=== PATIENT | female | born 1995 | race American Indian/Alaskan Native ===

== ENCOUNTER 2021-07-12 20:32 | Outpatient (CLI) | payer OTHER ==
[2021-07-12 23:10] VITALS: BP 115/66
== END 2021-07-12 23:45 | disposition home or self-care (01) ==
LOC: TRG 20:32 → APU 20:33 → TRG 23:45
PROVIDERS: ATTEND Obstetrics & Gynecology
DX: O47.1 False labor at or after 37 completed weeks of gestation (principal); Z3A.38 38 weeks gestation of pregnancy
CPT/HCPCS: 59025

== ENCOUNTER 2021-07-13 15:49 | Inpatient (IN) | payer OTHER ==
[2021-07-13] MEDS ORDERED: LACTATED RINGERS 2,000 ML ONE (15:58)
[2021-07-13] MEDS ORDERED: OXYTOCIN DRIP 60,000 MILLIUNITS/1,000 ML BAG IV ONE (16:22)
[2021-07-13] MEDS ORDERED: MAGNESIUM HYDROXIDE (MOM) ORAL LIQD UDC PO PRN (17:32)
[2021-07-13] MEDS ORDERED: KETOROLAC 30 MG/1 ML INJ IV PRN (17:32)
[2021-07-13] MEDS ORDERED: HYDROcodone/ACETAMINOPHEN 5-325 MG TAB PO PRN (17:32)
[2021-07-13] MEDS ORDERED: diphenhydrAMINE 25 MG CAP PO PRN (17:32)
[2021-07-13] MEDS ORDERED: PROMETHAZINE 25 MG TAB PO PRN (17:32)
[2021-07-13] MEDS ORDERED: PROMETHAZINE 25 MG RECT SUPP PR PRN (17:32)
[2021-07-13] MEDS ORDERED: ONDANSETRON 4 MG/2 ML INJ IV PRN (17:32)
[2021-07-13] MEDS ORDERED: ACETAMINOPHEN 325 MG TAB PO PRN (17:32)
[2021-07-13] MEDS ORDERED: LANOLIN/ZINC/DIMETHICONE (LANSINOH) 7 GM TP PRN (17:32)
[2021-07-13] MEDS ORDERED: WITCH HAZEL/ GLYCERIN PAD TP PRN (17:32)
--- NOTE | 2021-07-13 17:39 | History and Physical Report ---
History of Present Illness Date of examination: 07/13/21 Date of admission: 07/13/21 15:50 Chief complaint: Active labor. 9cm dilated. History of present illness: . LEONOR 07/23/2021. Past History Past Medical History: no pertinent history - Obstetrical History Expected Date of Delivery: 07/23/21 Actual Gestation: 38 Week(s) 4 Day(s) : 3 Para: 3 Medications and Allergies Allergies Allergy/AdvReac Type Severity Reaction Status Date / Time No Known Allergies Allergy Unverified 07/12/21 23:10 Active Meds: Active Medications Acetaminophen (Acetaminophen 325 Mg Tab) 650 mg PO Q4H PRN PRN Reason: Pain MILD(1-3)/Fever >100.5/MARIO Hydrocodone Bitart/Acetaminophen (Hydrocodone/Acetaminophen 5-325 Mg Tab) 2 each PO Q6H PRN PRN Reason: Pain, Moderate (4-6) Bisacodyl (Bisacodyl 10 Mg Rect Supp) 10 mg MS BID PRN PRN Reason: Constipation Diphenhydramine HCl (Diphenhydramine 25 Mg Cap) 25 mg PO Q6H PRN PRN Reason: Itching Ibuprofen (Ibuprofen 800 Mg Tab) 800 mg PO Q6H SUSI Ketorolac Tromethamine (Ketorolac 30 Mg/1 Ml Inj) 30 mg IV Q6H PRN PRN Reason: Pain, Moderate (4-6) Stop: 07/18/21 17:31 Magnesium Hydroxide (Magnesium Hydroxide (Mom) Oral Liqd Udc) 30 ml PO HS PRN PRN Reason: Constipation Multi-Ingredient Ointment (Lanolin/Zinc/Dimethicone (Lansinoh) 7 Gm) 1 applic TP PRN PRN PRN Reason: Sore Nipples Multivitamins/Iron/Calcium ( Xfb23-Pf Fumarate-Folic Acid Vit Tab) 1 each PO QDAY SUSI Ondansetron HCl (Ondansetron 4 Mg/2 Ml Inj) 4 mg IV Q8H PRN PRN Reason: Nausea And Vomiting Promethazine HCl (Promethazine 25 Mg Rect Supp) 25 mg MS Q6H PRN PRN Reason: Nausea And Vomiting Promethazine HCl (Promethazine 25 Mg Tab) 25 mg PO Q6H PRN PRN Reason: Nausea And Vomiting Sodium Chloride (Sodium Chloride 0.9% 10 Ml Flush Syringe) 10 ml IV PRN NR Witch Tania/Glycerin (Witch Tania/ Glycerin Pad) 1 each TP PRN PRN PRN Reason: Hemorrhoid/cleansing/soothing Review of Systems All systems: negative Gastrointestinal: abdominal pain Genitourinary: contractions - Vital Signs Vital signs: Vital Signs Pulse BP 87 122/67 07/13/21 16:39 07/13/21 16:39 Temp Pulse Resp BP Pulse Ox 82 122/79 99 07/13/21 17:24 07/13/21 17:24 07/13/21 17:05 - Physical Exam Breasts: Positive: deferred Lungs: Positive: Normal air movement Abdomen: Positive: normal appearance, soft, tenderness, normal bowel sounds Genitourinary (Female): Positive: normal external genitalia Vulva: both: normal Vagina: Positive: normal moisture. Negative: discharge Cervix: Negative: lesion, discharge Uterus: Positive: enlarged, normal contour Anus/Rectum: Positive: normal perianal skin, heme negative. Negative: rectal mass, hemorrhoids Extremities: Deep Tendon Reflex Grade: Normal +2 - Obstetrical FHR: auscultation normal Cervical Dilatation: 10 (ARM: meconium ++.) Cervical Effacement Percentage: 100 station: 0 Uterine Contraction Pattern: Regular Uterine Tone Measurement Phase: Contraction Uterine Contraction Intensity: Strong/Firm Results All other labs normal. Assessment and Plan - Patient Problems (1) 38 weeks gestation of Current Visit: Yes Status: Acute (2) Active labor at term Current Visit: Yes Status: Acute Plan to address problem: Delivered within moments of admission.
--- NOTE | 2021-07-13 17:41 | Procedure Note ---
OB Delivery Note - Delivery Date of Delivery: 07/13/21 Surgeon: JORGE DOW Estimated blood loss: 300cc - Vaginal Delivery presentation: vertex Delivery position: OA Intrapartum events: none Delivery induction: none Delivery monitor: external FHT, external uterine Route of delivery: Delivery placenta: spontaneous, expressed Delivery cord: 3 umbilical vessels Episiotomy: none Delivery laceration: none Anesthesia: none - Infant A at 1 minute: 8 at 5 minutes: 9 Infant Gender: Male
[2021-07-13] MEDS ORDERED: OXYTOCIN DRIP 30 UNITS/500 ML BAG IV SCH (20:00)
[2021-07-13 20:19] LABS: Basophils % (Auto) 0.4 % (0.0-1.8); Eosinophils # (Auto) 0.1 K/mm3 (0.0-0.4); Eosinophils % (Auto) 1.3 % (0.0-4.3); Hematocrit 40.6 % (30.3-42.9); Hemoglobin 13.2 gm/dl (10.1-14.3); Mean Corpuscular HGB Conc 33 % (30-34); Mean Corpuscular Volume 94 fl (79-97); Monocytes # (Auto) 0.6 K/mm3 (0.0-0.8); Platelet Count 211 K/mm3 (140-440); Red Blood Count 4.33 M/mm3 (3.65-5.03); Red Cell Distribution Width 12.4 % (13.2-15.2)
[2021-07-13] MEDS: IBUPROFEN 800 MG TAB PO SCH (21:43)
[2021-07-14] MEDS: IBUPROFEN 800 MG TAB PO SCH ×4 (02:41→18:12)
[2021-07-14] MEDS: PRENATAL VIT27-FE FUMARATE-FOLIC ACID VIT TAB PO SCH (10:04)
[2021-07-14 10:40] LABS: Hematocrit 37.2 % (30.3-42.9); Hemoglobin 12.2 gm/dl (10.1-14.3)
--- NOTE | 2021-07-14 12:48 | Progress Note ---
Assessment and Plan - Patient Problems (1) 38 weeks gestation of Current Visit: Yes Status: Resolved (2) Active labor at term Current Visit: Yes Status: Resolved (3) Status post vacuum-assisted vaginal delivery Current Visit: Yes Status: Acute Plan to address problem: Stable. Subjective - Subjective Date of service: 07/14/21 Principal diagnosis: Status post vag delivey day 1. Interval history: . LEONOR 07/23/2021. Delivered 07/13/21. Had no complaints today. Patient reports: appetite normal, voiding normally, pain well controlled [place]: doing well Objective - Vital Signs Latest vital signs: Vital Signs Temp Pulse Resp BP BP Pulse Ox Pulse Ox 07/14/21 12:40 16 07/14/21 07:50 75 103/61 96 07/14/21 07:20 18 07/14/21 06:20 18 07/14/21 04:57 98.0 F 79 18 114/62 98 07/14/21 03:46 18 07/14/21 02:46 18 07/14/21 02:41 18 07/14/21 01:15 98.1 F 80 18 102/56 98 07/13/21 22:43 18 07/13/21 21:43 18 07/13/21 20:17 98.5 F 84 18 118/69 100 07/13/21 20:00 100 07/13/21 19:52 85 111/56 07/13/21 19:48 98.4 F 14 111/56 100 100 07/13/21 18:24 76 124/70 07/13/21 18:09 74 125/61 07/13/21 17:54 82 128/81 07/13/21 17:39 89 123/82 07/13/21 17:24 82 122/79 07/13/21 17:09 78 118/79 07/13/21 17:05 99 07/13/21 16:54 90 119/70 07/13/21 16:39 87 122/67 Intake and Output 07/13/21 07/14/21 07/14/21 23:59 07:59 15:59 Intake Total 480 480 Output Total 700 1100 Balance -220 -620 Intake: Oral 480 Intake, Free Water 480 Output: Urine 700 1100 Void 700 1100 Other: Total, Intake Amount 480 Total, Output Amount 700 500 Weight 77.111 kg - Exam Narrative Exam: Happy. Lungs: Present: Normal air movement Abdomen: Present: normal appearance, soft Uterus: Present: normal, firm Extremities: Present: normal Deep Tendon Reflex Grade: Normal +2 - Labs Labs: Abnormal lab results 07/13/21 Range/Units 16:08 RDW 12.4 L (13.2-15.2) %
--- NOTE | 2021-07-14 12:51 | Discharge Summary ---
Providers - Providers Date of Admission: 07/13/21 15:50 Date of discharge: 07/14/21 Attending physician: JORGE DOW MD Primary care physician: JORGE DOW MD Hospitalization Reason for admission: active labor, IUP at term Delivery: Episiotomy: none Laceration: none Other procedures: none complications: none Discharge diagnosis: IUP at term delivered baby: male Condition at discharge: Good Disposition: 01 HOME / SELF CARE / HOMELESS - Discharge Diagnoses (1) 38 weeks gestation of Status: Resolved (2) Active labor at term Status: Resolved (3) Status post vacuum-assisted vaginal delivery Status: Acute Plan - Provider Discharge Summary Activity: routine, no sex for 6 weeks, no heavy lifting 4 weeks, no strenuous exercise Diet: routine Instructions: other (May leave next day.) Additional instructions: [] Smoking cessation referral if applicable(refer to patient education folder for contact #) [] Refer to [facility]'s [facility] Booklet Call your doctor immediately for: * Fever > 100.5 * Heavy vaginal bleeding ( >1 pad per hour) * Severe persistent headache * Shortness of breath * Reddened, hot, painful area to leg or breast * Drainage or odor from incision. * Keep incision clean and dry at all times and follow doctor's instructions regarding bathing/showering - Follow up plan Follow up: JORGE DOW MD [Primary Care Provider] - 7 Days
[2021-07-15] MEDS: IBUPROFEN 800 MG TAB PO SCH (06:34)
[2021-07-15] MEDS: PRENATAL VIT27-FE FUMARATE-FOLIC ACID VIT TAB PO SCH (10:04)
[2021-07-15 15:44] VITALS: BP 129/82
== END 2021-07-14 15:00 | disposition home or self-care (01) | DRG 807 ==
LOC: TRG 15:49 → LD 15:50 → APU 15:50 → LD 16:16 → TRG 17:25 → OB 20:20
PROVIDERS: ADMIT Obstetrics & Gynecology; ATTEND Obstetrics & Gynecology
PROC: 10E0XZZ Delivery of Products of Conception, External Approach (ICD-10-PCS; principal; 2021-07-13)
DX: O69.81X0 Labor and delivery complicated by cord around neck, without compression, not applicable or unspecified (principal); Z37.0 Single live birth; Z3A.38 38 weeks gestation of pregnancy; O77.0 Labor and delivery complicated by meconium in amniotic fluid; Z20.822 Contact with and (suspected) exposure to COVID-19
CPT/HCPCS: 36415; 85014; 85018; 85025; 86592; G0378; J2590; U0003